=== PATIENT | female | born 1955 | race Two or more races ===

== ENCOUNTER 2024-10-04 10:45 | Inpatient (IN) | payer OTHER ==
[~2024-10-04] VITALS: Ht 157.5 cm; Wt 63.5 kg
[2024-10-04] MEDS ORDERED: ZESTRIL20 MG PO (12:09)
[2024-10-04] MEDS ORDERED: CARVEDILOL3.125 MG (12:09)
[2024-10-04] MEDS ORDERED: SYNTHROID200 MCG PO (12:10)
[2024-10-04] MEDS ORDERED: MONTELUKAST SOD10 MG PO (12:11)
[2024-10-04] MEDS ORDERED: BENADRYL25 MG PO (12:11)
[2024-10-04] MEDS ORDERED: RESTORIL30 MG PO (12:11)
[2024-10-04] MEDS ORDERED: PRAVASTATIN SOD80 MG PO (12:12)
[2024-10-04] MEDS ORDERED: WELLBUTRIN SR150 MG PO (12:12)
[2024-10-04] MEDS ORDERED: PEPCID40 MG PO (12:13)
[2024-10-04] MEDS ORDERED: PLAVIX75 MG PO (12:13)
[2024-10-04] MEDS ORDERED: PROTONIX40 MG PO (12:13)
[2024-10-04 12:19] VITALS: BP 136/77
[2024-10-15 07:51] LABS: BILIRUBIN TOTAL 0.28 mg/dL (0.3-1.2); CALCIUM 10.4 mg/dL (8.5-10.1); CREATININE SERUM 0.92 mg/dL (0.55-1.02); GFR 60.89; GLOBULINA 4.1 G/DL (2.4-3.5); POTASSIUM 4.27 mEq/L (3.5-5.1); TOTAL PROTEIN 8.1 gm/dL (6.4-8.2)
[2024-10-15] MEDS ORDERED: METRONIDAZOLE/SODIUM CHLORIDE 500 MG/100 ML PIGGYBACK IV ONE (11:14)
[2024-10-15] MEDS ORDERED: CEFTRIAXONE SODIUM 2,000 MG VIAL ONE (11:14)
[2024-10-15] MEDS ORDERED: LIDOCAINE HCL 1%/EPINEPHRINE 20ML VIAL IJ ONE (15:36)
[2024-10-15] MEDS ORDERED: BUPIVACAINE HCL/MPF 0.5% 30ML VIAL ONE (15:36)
[2024-10-15] MEDS ORDERED: DEXTROSE 50 % IN WATER 0.5 G/ML DISP.SYRIN IV PRN (16:30)
[2024-10-15] MEDS ORDERED: ONDANSETRON HCL 2 MG/ML VIAL IV PRN (16:30)
[2024-10-15] MEDS ORDERED: MORPHINE SULFATE 4 MG/ML CARTRIDGE IV PRN (16:30)
[2024-10-15] MEDS ORDERED: 0.9 % SODIUM CHLORIDE 1,000 ML IV SCH (16:30)
[2024-10-15] MEDS ORDERED: OxyCODONE HCL 5 MG TABLET (ROXICODONE) PO PRN (16:30)
[2024-10-15] MEDS ORDERED: GABAPENTIN 300 MG CAPSULE PO SCH (17:00)
[2024-10-15] MEDS ORDERED: HYOSCYAMINE SULFATE 0.125 MG TAB.SUBL SL SCH (17:00)
[2024-10-15] MEDS ORDERED: METRONIDAZOLE/SODIUM CHLORIDE 500 MG/100 ML PIGGYBACK IV SCH (17:00)
[2024-10-15] MEDS ORDERED: POLYETHYLENE GLYCOL 3350 17 GM BLIST.PACK PO SCH (17:00)
[2024-10-15] MEDS ORDERED: MORPHINE SULFATE 4 MG/ML VIAL IV ONE ×2 (19:50→21:00)
[2024-10-15] MEDS ORDERED: ACETAMINOPHEN 500 MG GEL..CAP PO SCH (20:00)
[2024-10-15] MEDS ORDERED: TEMAZEPAM 15 MG CAPSULE PO SCH (21:00)
[2024-10-15] MEDS ORDERED: CELECOXIB 200 MG CAPSULE PO SCH (21:00)
[2024-10-15] MEDS ORDERED: MONTELUKAST SODIUM 10 MG TABLET PO SCH (21:00)
[2024-10-15] MEDS ORDERED: FAMOTIDINE/PF 20 MG/2 ML VIAL IV PUSH SCH (21:00)
[2024-10-15] MEDS ORDERED: FAMOTIDINE/PF 20 MG/2 ML VIAL ONE (21:48)
[2024-10-15 22:05] LABS: HEMATOCRIT 34.3 % (36.0-45.00); MEAN CELL VOLUME 74.7 fL (80.00-100.00); MEAN CORPUSCULAR HGB CONC 32.2 g/dl (32.0-36.0); PLATELET COUNT 447 K/uL (150-450); RED BLOOD COUNT 4.59 M/uL (4.00-6.00)
[2024-10-15 22:27] LABS: ALBUMIN 3.4 gm/dL (3.4-5.0); CALCIUM 9.3 mg/dL (8.5-10.1); CREATININE SERUM 0.98 mg/dL (0.55-1.02); GFR 56.61; MAGNESIUM 1.5 mg/dL (1.8-2.4); PHOSPHOROUS 3.5 mg/dL (2.5-4.9); POTASSIUM 4.44 mEq/L (3.5-5.1)
[2024-10-15 22:48] VITALS: BP 152/87; O2SAT 97
[2024-10-16] MEDS ORDERED: LEVOTHYROXINE SODIUM 200 MCG TABLET PO SCH (06:00)
[2024-10-16] MEDS ORDERED: CARVEDILOL 3.125 MG TABLET PO SCH (09:00)
[2024-10-16] MEDS ORDERED: LISINOPRIL 20 MG TABLET PO SCH (09:00)
[2024-10-16] MEDS ORDERED: BUPROPION HCL 150 MG TABLET.SA PO SCH (09:00)
[2024-10-16] MEDS ORDERED: ENOXAPARIN SODIUM 40 MG/0.4 ML SYRINGE SUBCUTANEO SCH (17:00)
[2024-10-17 01:01] VITALS: BP 100/56; O2SAT 96
[2024-10-17 08:00] VITALS: BP 107/66; O2SAT 97
[2024-10-17] MEDS ORDERED: ENOXAPARIN SODIUM 40 MG/0.4 ML SYRINGE SUBCUTANEO SCH (09:00)
[2024-10-17] MEDS ORDERED: TAMSULOSIN HCL 0.4 MG CAP PO SCH (09:00)
[2024-10-17] MEDS ORDERED: MEPERIDINE HCL/PF 25 MG/ML VIAL IV PRN (15:00)
[2024-10-17 16:00] VITALS: BP 118/67; O2SAT 97
[2024-10-17] MEDS ORDERED: HYDROCORTISONE 2.5% 30 GM TUBE TOP SCH (17:00)
[2024-10-18 01:20] VITALS: BP 115/61; O2SAT 96
[2024-10-18 07:47] LABS: HEMATOCRIT 24.7 % (36.0-45.00); MEAN CELL VOLUME 74.5 fL (80.00-100.00); MEAN CORPUSCULAR HGB CONC 32.7 g/dl (32.0-36.0); PLATELET COUNT 408 K/uL (150-450); RED BLOOD COUNT 3.32 M/uL (4.00-6.00); RED CELL DISTRIBUTION WIDTH 19.1 % (11.5-14.5)
[2024-10-18 07:48] LABS: HEMOGLOBIN 8.1 g/dL (12.0-15.00); MEAN CORPUSCULAR HEMOGLOBIN 24.3 pg (27.00-32.0)
[2024-10-18 08:00] VITALS: BP 129/76; O2SAT 100
[2024-10-18 08:18] LABS: ALBUMIN 2.4 gm/dL (3.4-5.0); BILIRUBIN TOTAL 0.21 mg/dL (0.3-1.2); CALCIUM 8.2 mg/dL (8.5-10.1); CREATININE SERUM 0.54 mg/dL (0.55-1.02); GFR 112.61; POTASSIUM 3.69 mEq/L (3.5-5.1); TOTAL PROTEIN 5.4 gm/dL (6.4-8.2)
[2024-10-18] MEDS ORDERED: TRAMADOL HCL 50 MG TABLET PO PRN (10:15)
[2024-10-18] MEDS ORDERED: SOD FERRIC GLUC COMPLX/SUCROSE 62.5 MG in 0.9 % SODIUM CHLORIDE 50 ML IV SCH (12:00)
[2024-10-18 16:37] VITALS: BP 128/75; O2SAT 96
[2024-10-19] VITALS: BP 129/67; O2SAT 98
[2024-10-19 08:00] VITALS: BP 149/82; O2SAT 98
[2024-10-19 13:06] LABS: HEMATOCRIT 34.7 % (36.0-45.00); HEMOGLOBIN 11.6 g/dL (12.0-15.00); MEAN CELL VOLUME 78.2 fL (80.00-100.00); MEAN CORPUSCULAR HGB CONC 33.3 g/dl (32.0-36.0); PLATELET COUNT 399 K/uL (150-450); RED BLOOD COUNT 4.44 M/uL (4.00-6.00); RED CELL DISTRIBUTION WIDTH 18.5 % (11.5-14.5)
[2024-10-19 17:04] VITALS: BP 149/83; O2SAT 98
[2024-10-19] MEDS ORDERED: FAMOtidine 20 MG TABLET PO SCH (21:00)
[2024-10-20 00:46] VITALS: BP 137/78; O2SAT 99
[2024-10-20 08:00] VITALS: BP 149/71; O2SAT 96
[2024-10-20 08:20] LABS: HEMATOCRIT 36.8 % (36.0-45.00); HEMOGLOBIN 12.1 g/dL (12.0-15.00); MEAN CELL VOLUME 78.2 fL (80.00-100.00); MEAN CORPUSCULAR HEMOGLOBIN 25.6 pg (27.00-32.0); MEAN CORPUSCULAR HGB CONC 32.8 g/dl (32.0-36.0); PLATELET COUNT 433 K/uL (150-450); RED BLOOD COUNT 4.71 M/uL (4.00-6.00); RED CELL DISTRIBUTION WIDTH 18.9 % (11.5-14.5)
[2024-10-20 08:53] LABS: ALBUMIN 2.7 gm/dL (3.4-5.0); CALCIUM 9.3 mg/dL (8.5-10.1); CREATININE SERUM 0.61 mg/dL (0.55-1.02); GFR 97.83; MAGNESIUM 1.7 mg/dL (1.8-2.4); PHOSPHOROUS 4.1 mg/dL (2.5-4.9)
[2024-10-20 16:00] VITALS: BP 144/77; O2SAT 96
[2024-10-21 00:30] VITALS: BP 142/70; O2SAT 97
[2024-10-21 08:00] VITALS: BP 144/79; O2SAT 97
== END 2024-10-21 20:59 | disposition home or self-care (01) | DRG 330 ==
LOC: O/R 10-15 06:05 → SURH 10-15 06:05 → O/R 10-15 20:49 → SURH 10-16 10:45 → O/R 10-18 06:31 → SURH 10-18 08:53
PROVIDERS: Internal Medicine; ADMIT Surgery; ATTEND Surgery
PROC: 0DBP4ZZ Excision of Rectum, Percutaneous Endoscopic Approach (ICD-10-PCS; 2024-10-15)
PROC: 0DJD8ZZ Inspection of Lower Intestinal Tract, Via Natural or Artificial Opening Endoscopic (ICD-10-PCS; 2024-10-15)
PROC: 0DTN4ZZ Resection of Sigmoid Colon, Percutaneous Endoscopic Approach (ICD-10-PCS; principal; 2024-10-15 11:15)
PROC: 0T9B70Z Drainage of Bladder with Drainage Device, Via Natural or Artificial Opening (ICD-10-PCS; 2024-10-17)
PROC: 30233N1 Transfusion of Nonautologous Red Blood Cells into Peripheral Vein, Percutaneous Approach (ICD-10-PCS; 2024-10-18)
DX: K57.20 Diverticulitis of large intestine with perforation and abscess without bleeding (principal); K63.2 Fistula of intestine; K66.0 Peritoneal adhesions (postprocedural) (postinfection); D64.89 Other specified anemias; R59.0 Localized enlarged lymph nodes; R10.32 Left lower quadrant pain; R19.4 Change in bowel habit; R33.8 Other retention of urine; I10 Essential (primary) hypertension; E11.9 Type 2 diabetes mellitus without complications; E03.9 Hypothyroidism, unspecified

== ENCOUNTER 2024-10-25 18:31 | Inpatient (IN) | payer OTHER ==
[~2024-10-25] VITALS: Ht 157.5 cm; Wt 63.5 kg
[~2024-10-25 18:31] MED LIST: BENADRYL25 MG PO; CARVEDILOL3.125 MG; MONTELUKAST SOD10 MG PO; PEPCID40 MG PO; PLAVIX75 MG PO; PRAVASTATIN SOD80 MG PO; PROTONIX40 MG PO; RESTORIL30 MG PO; SYNTHROID200 MCG PO; WELLBUTRIN SR150 MG PO; ZESTRIL20 MG PO
[2024-10-25] MEDS ORDERED: TRIJARDY XR 101 EACH PO (18:43)
[2024-10-25] MEDS ORDERED: GLIPIZIDE XL2.5 MG (18:44)
[2024-10-25] MEDS ORDERED: 0.9 % SODIUM CHLORIDE 1,000 ML IV STA (20:22)
[2024-10-25] MEDS ORDERED: FAMOTIDINE/PF 20 MG/2 ML VIAL IV ONE (20:30)
[2024-10-25] MEDS ORDERED: ONDANSETRON HCL 2 MG/ML VIAL IV ONE (20:30)
[2024-10-25] MEDS ORDERED: MORPHINE SULFATE 4 MG/ML CARTRIDGE IV ONE (20:30)
[2024-10-25] MEDS ORDERED: PIPERACILLIN/TAZOBACTAM SODIUM 3.375 GM VIAL IV ONE ×2 (20:30→21:19)
[2024-10-25] MEDS ORDERED: ONDANSETRON HCL 2 MG/ML VIAL ONE (21:19)
[2024-10-25] MEDS ORDERED: FAMOTIDINE/PF 20 MG/2 ML VIAL ONE (21:19)
[2024-10-25 23:32] LABS: HEMATOCRIT 40.4 % (36.0-45.00); HEMOGLOBIN 13.4 g/dL (12.0-15.00); MEAN CELL VOLUME 77.4 fL (80.00-100.00); MEAN CORPUSCULAR HEMOGLOBIN 25.8 pg (27.00-32.0); MEAN CORPUSCULAR HGB CONC 33.3 g/dl (32.0-36.0); PLATELET COUNT 561 K/uL (150-450); RED BLOOD COUNT 5.22 M/uL (4.00-6.00); RED CELL DISTRIBUTION WIDTH 19.3 % (11.5-14.5)
[2024-10-25 23:44] LABS: INR 1.02; PARTIAL THROMBOPLASTIN TIME 23.1 SECONDS (22.0-34.0); PROTHROMBIN TIME 11.1 SECONDS (9.0-11.5)
[2024-10-25 23:50] LABS: ALBUMIN 3.2 gm/dL (3.4-5.0); BILIRUBIN TOTAL 0.39 mg/dL (0.3-1.2); CALCIUM 9.4 mg/dL (8.5-10.1); CREATININE SERUM 0.48 mg/dL (0.55-1.02); GLOBULINA 4.3 G/DL (2.4-3.5); POTASSIUM 3.87 mEq/L (3.5-5.1); TOTAL PROTEIN 7.5 gm/dL (6.4-8.2)
[2024-10-26] MEDS ORDERED: MORPHINE SULFATE 4 MG/ML VIAL IV STA (01:19)
[2024-10-26] MEDS ORDERED: FAMOTIDINE/PF 20 MG in 0.9 % SODIUM CHLORIDE 8 ML IV PUSH SCH (06:40)
[2024-10-26] MEDS ORDERED: AA 5 %/CALCIUM/LYTES/DEXT 20 % 2,000 ML CENTRAL SCH (06:45)
[2024-10-26] MEDS ORDERED: MORPHINE SULFATE 4 MG/ML VIAL IV PRN (06:45)
[2024-10-26] MEDS ORDERED: ONDANSETRON HCL 4 MG in DEXTROSE 5 % IN WATER 50 ML IV PRN (06:45)
[2024-10-26] MEDS ORDERED: SODIUM CHLORIDE 0.45 % 1,000 ML IV SCH (06:45)
[2024-10-26] MEDS ORDERED: PIPERACILLIN/TAZOBACTAM SODIUM 3.375 GM in DEXTROSE 5 % IN WATER 100 ML IV SCH (08:00)
[2024-10-26] MEDS ORDERED: ENOXAPARIN SODIUM 40 MG/0.4 ML SYRINGE SUBCUTANEO SCH (09:00)
[2024-10-26 09:08] VITALS: BP 132/64; O2SAT 94
[2024-10-26 16:00] VITALS: BP 149/76; O2SAT 96
[2024-10-26] MEDS ORDERED: INSULIN LISPRO 1,000 UNIT/10 ML UNITS SUBCUTANEO PRN (16:30)
[2024-10-26] MEDS ORDERED: ENALAPRILAT DIHYDRATE 1.25 MG/ML VIAL IV PRN (16:30)
[2024-10-26] MEDS ORDERED: DEXTROSE 50 % IN WATER 0.5 G/ML VIAL IV PRN (16:30)
[2024-10-26] MEDS ORDERED: AA 5 % NO.6/DEXTROSE 15 % 1,000 ML CENTRAL SCH (17:00)
[2024-10-27 00:55] VITALS: BP 144/77; O2SAT 98
[2024-10-27 08:00] VITALS: BP 157/75; O2SAT 95
[2024-10-27 09:38] LABS: HEMATOCRIT 39.8 % (36.0-45.00); HEMOGLOBIN 13.3 g/dL (12.0-15.00); MEAN CELL VOLUME 77.8 fL (80.00-100.00); MEAN CORPUSCULAR HGB CONC 33.4 g/dl (32.0-36.0); PLATELET COUNT 521 K/uL (150-450); RED BLOOD COUNT 5.12 M/uL (4.00-6.00)
[2024-10-27 10:17] LABS: ALBUMIN 3.2 gm/dL (3.4-5.0); BILIRUBIN TOTAL 0.27 mg/dL (0.3-1.2); CALCIUM 8.9 mg/dL (8.5-10.1); CREATININE SERUM 0.46 mg/dL (0.55-1.02); GFR 135.49; GLOBULINA 3.4 G/DL (2.4-3.5); POTASSIUM 4.46 mEq/L (3.5-5.1); TOTAL PROTEIN 6.6 gm/dL (6.4-8.2)
[2024-10-27 19:29] VITALS: BP 154/73; O2SAT 95
[2024-10-27] MEDS ORDERED: TEMAZEPAM 15 MG CAPSULE PO SCH (21:00)
[2024-10-27] MEDS ORDERED: DIPHENHYDRAMINE HCL 50 MG/ML VIAL 1ML IV SCH (21:00)
[2024-10-28 00:27] VITALS: BP 147/73; O2SAT 96
[2024-10-28 08:00] VITALS: BP 134/75; O2SAT 98
[2024-10-28 14:34] LABS: PH,URINE 6.5 (5.0-8.0); URINE APPEARANCE Clear; URINE BILIRRUBIN Negative (NEGATIVE); URINE BLOOD Negative; URINE COLOR Yellow; URINE KETONE Negative (NEGATIVE); URINE LEUKOCYTE Negative; URINE NITRATE Negative; URINE PROTEIN Trace (NEGATIVE); URINE UROBILINOGEN 0.2 E.U./dl
[2024-10-28 14:38] LABS: URINE BACTERIA 9.7 uL (0.0-1933); URINE EPITHELIAL CELLS 7.5 uL (0.0-38.8); URINE RBC 5.1 uL (0.0-20.8); URINE WBC 42.5 uL (0.0-23.2)
[2024-10-28 14:46] LABS: URINE GLUCOSE >=1000 MG/DL (NEGATIVE)
[2024-10-28 14:50] LABS: URINE YEAST MODERATE /hpf
[2024-10-28 16:30] VITALS: BP 128/71; O2SAT 98
[2024-10-28] MEDS ORDERED: TEMAZEPAM 15 MG CAPSULE PO SCH (21:00)
[2024-10-29 00:21] VITALS: BP 146/73; O2SAT 96
[2024-10-29 07:24] LABS: HEMATOCRIT 36.8 % (36.0-45.00); HEMOGLOBIN 12.2 g/dL (12.0-15.00); MEAN CELL VOLUME 78.3 fL (80.00-100.00); MEAN CORPUSCULAR HEMOGLOBIN 25.8 pg (27.00-32.0); PLATELET COUNT 425 K/uL (150-450); RED CELL DISTRIBUTION WIDTH 19.1 % (11.5-14.5)
[2024-10-29 08:04] LABS: ALBUMIN 2.9 gm/dL (3.4-5.0); ALKALINE PHOSPHATASE 86 U/L (50-136); ALT/SGPT 19 U/L (12-78); AST/SGOT 18 U/L (15-37); BILIRUBIN TOTAL 0.24 mg/dL (0.3-1.2); BILIRUBIN,CONJUGATED < 0.10 mg/dL (0.0-0.2); BILIRUBIN,UNCONJUGATED 0.14 mg/dL (0.0-0.6); BLOOD UREA NITROGEN 10 mg/dL (7-18); BUN CREA RATIO 21 (7.0-25.0); CALCIUM 8.9 mg/dL (8.5-10.1); CARBON DIOXIDE 22 mEq/L (21-32); CHOL HDL RATIO 3.6 (0-5.0); CHOLESTEROL 136 mg/dL (0-200); CREATININE SERUM 0.48 mg/dL (0.55-1.02); GLUCOSE FASTING 152 mg/dL (65-100); HDL 38 mg/dl (40-60); LDL 63 mg/dl (0-130); OSMOLALITY SERUM 291 MOSM/KG (275-295); PHOSPHOROUS 2.4 mg/dL (2.5-4.9); POTASSIUM 3.32 mEq/L (3.5-5.1); SODIUM 145 mmol/L (136-145); TOTAL PROTEIN 5.9 gm/dL (6.4-8.2); TRIGLYCERIDES 174 mg/dL (0-150); VLDL 34 (0-39)
[2024-10-29 08:12] LABS: ANION GAP 9 (10.0-20.0); C-REACTIVE PROTEIN 1.13 MG/DL (0.00-0.29); CHLORIDE 117 mmol/L (98-107)
[2024-10-29 08:25] VITALS: BP 143/82; O2SAT 96
[2024-10-29 10:44] LABS: UREA CLEARANCE 45.7 ML/MIN
[2024-10-29 17:00] VITALS: BP 126/73; O2SAT 97
[2024-10-29] MEDS ORDERED: CARVEDILOL 3.125 MG TABLET PO SCH (17:00)
[2024-10-29] MEDS ORDERED: POTASSIUM PHOS,M-BASIC-D-BASIC 15 MM in 0.9 % SODIUM CHLORIDE 250 ML IV NR (17:00)
[2024-10-29] MEDS ORDERED: POTASSIUM CHLORIDE IN WATER 100 ML IV NR (22:30)
[2024-10-30] VITALS: BP 142/73; O2SAT 98
[2024-10-30] MEDS ORDERED: FLUCONAZOLE IN NACL,ISO-OSM 400 MG/200 ML PIGGYBAG IV NR
[2024-10-30] MEDS ORDERED: LEVOTHYROXINE SODIUM 150 MCG TABLET PO SCH (06:00)
[2024-10-30 08:00] VITALS: BP 142/85; O2SAT 97
[2024-10-30] MEDS ORDERED: POLYETHYLENE GLYCOL 3350 17 GM BLIST.PACK PO SCH (09:00)
[2024-10-30] MEDS ORDERED: LISINOPRIL 40 MG TABLET PO SCH (09:00)
[2024-10-30] MEDS ORDERED: FLUCONAZOLE IN NACL,ISO-OSM 100 ML IV SCH (17:00)
[2024-10-30 17:30] VITALS: BP 161/90; O2SAT 98
[2024-10-30 22:35] VITALS: BP 172/86; O2SAT 98
[2024-10-31 01:23] VITALS: BP 135/76; O2SAT 100
[2024-10-31 08:00] VITALS: BP 156/84; O2SAT 97
[2024-10-31] MEDS ORDERED: DIATRIZOATE MEGLUMINE, SODIUM 30 ML BOTTLE PO NR (08:00)
[2024-10-31 16:00] VITALS: BP 157/80; O2SAT 98
[2024-11-01 01:39] VITALS: BP 153/77; O2SAT 95
[2024-11-01] MEDS ORDERED: TRAM1TAB98 PO (13:25)
[2024-11-01] MEDS ORDERED: ZOFRAN8 MG PO (13:25)
[2024-11-01] MEDS ORDERED: LEVOFLOXACIN500 MG PO (13:25)
[2024-11-01] MEDS ORDERED: INTESTINEX680 M1 PO (13:25)
[2024-11-01] MEDS ORDERED: FLUCONAZOLE100 MG PO (13:26)
[2024-11-01] MEDS ORDERED: PEPCID AC20 MG PO (13:27)
== END 2024-11-01 16:55 | disposition home or self-care (01) | DRG 389 ==
LOC: ER 18:32 → SEC-K 10-26 07:12 → SURH 10-26 07:12
PROVIDERS: Emergency Medicine; Internal Medicine Infectious Disease; ADMIT Surgery; ATTEND Surgery
PROC: BW21YZZ Computerized Tomography (CT Scan) of Abdomen and Pelvis using Other Contrast (ICD-10-PCS; 2024-10-25)
PROC: 0D9670Z Drainage of Stomach with Drainage Device, Via Natural or Artificial Opening (ICD-10-PCS; principal; 2024-10-26)
PROC: 02HV33Z Insertion of Infusion Device into Superior Vena Cava, Percutaneous Approach (ICD-10-PCS; 2024-10-26)
PROC: BW21YZZ Computerized Tomography (CT Scan) of Abdomen and Pelvis using Other Contrast (ICD-10-PCS; 2024-10-31)
DX: K91.31 Postprocedural partial intestinal obstruction (principal); B37.49 Other urogenital candidiasis; E11.9 Type 2 diabetes mellitus without complications; E03.9 Hypothyroidism, unspecified; Y83.8 Other surgical procedures as the cause of abnormal reaction of the patient, or of later complication, without mention of misadventure at the time of the procedure